=== PATIENT | male | born 1955 | race American Indian/Alaskan Native ===

== ENCOUNTER 2019-07-03 09:09 | Outpatient (CLI) | payer MEDICARE ==
[2019-07-03 11:14] LABS: Chol/HDL Ratio 3.01 %
== END 2019-07-03 09:10 | disposition home or self-care (01) ==
LOC: LAB 09:09
PROVIDERS: ATTEND Internal Medicine
DX: E11.65 Type 2 diabetes mellitus with hyperglycemia (principal); E78.5 Hyperlipidemia, unspecified
CPT/HCPCS: 36415; 80061; 83036

== ENCOUNTER 2019-11-17 10:09 | Outpatient (CLI) | payer MEDICARE ==
[2019-11-17 12:45] LABS: Chol/HDL Ratio 3.31 %
== END 2019-11-17 10:10 | disposition home or self-care (01) ==
LOC: LAB 10:09
PROVIDERS: ATTEND Internal Medicine
DX: I10 Essential (primary) hypertension (principal); E78.5 Hyperlipidemia, unspecified; E11.65 Type 2 diabetes mellitus with hyperglycemia
CPT/HCPCS: 36415; 80061; 83036

== ENCOUNTER 2021-01-18 18:09 | Observation (INO) | payer MEDICARE, OTHER ==
--- NOTE | 2021-01-18 19:42 | Emergency Department Report ---
ED General Adult HPI - General Chief complaint: Weakness Stated complaint: SYNCOPE/COVID PUI?: Yes Time Seen by Provider: 01/18/21 19:22 Source: patient, EMS ( EMS documentation not available at time of chart dictation ), RN notes reviewed, old records reviewed Mode of arrival: Stretcher Limitations: Physical Limitation - History of Present Illness Initial comments: The patient was evaluated in the emergency department for symptoms described in the history of present illness. He/she was evaluated in the context of the global COVID-19 pandemic, which necessitated consideration that the patient might be at risk for infection with the virus that causes COVID-19. Institutional protocols and algorithms that pertain to the evaluation of patients at risk for COVID-19 are in a state of rapid change based on information released by regulatory bodies including the CDC and federal and state organizations. These policies and algorithms were followed during the patient's care in the emergency department. Please note that these policies, procedures and recommendations changed on a rapid basis. During the entire history and physical examination, I had on complete personal protective equipment. Past medical history: Stroke, residual right-sided deficits, gout, hypertension, diabetes, renal insufficiency, recent admission to this hospital for symptomatic Covid, BMI 41, physical deconditioning. The patient is a 65-year-old gentleman. He was discharged from this hospital earlier on today. Please see his most recent discharge summary for the details of his past history, and hospital course, which is prolonged, and complicated. The patient reports that he occasionally walks with a walker, and sometimes with a cane. The patient reports that he was walking, became lightheaded, dizzy, and felt like he was almost going to pass out/fall out. The patient denies physical pain at this time. 911 was contacted, and it is reported that the patient was hypoxic in the field, with an O2 sat of 88%, requiring nonrebreather. The patient denies headache and neck pain. He has chronic shortness of breath. He denies chest pain. He denies abdominal pain. He is not sure if he is had loss of taste or smell. He denies hematemesis or bright red blood per rectum. He denies urinary symptoms. He has chronic weakness in his right upper and right lower extremity. He states that he still feels weak and short of breath. -: Sudden Consistency: now resolved Improves with: rest Worsens with: movement - Related Data Home Medications Medication Instructions Recorded Confirmed Last Taken Aspirin 325 mg PO QDAY 04/14/16 12/28/20 07/23/18 Losartan [Cozaar] 100 mg PO QDAY 04/14/16 12/28/20 07/26/18 Metoprolol [Lopressor TAB] 100 mg PO QDAY 04/14/16 12/28/20 07/26/18 Simvastatin (Nf) [Zocor TAB] 20 mg PO QHS 04/14/16 12/28/20 07/26/18 cloNIDine [Catapres] 0.2 mg PO QDAY 04/14/16 12/28/20 07/26/18 hydroCHLOROthiazide [HCTZ] 25 mg PO QDAY 04/14/16 12/28/20 07/26/18 Previous Rx's Medication Instructions Recorded Last Taken Type Insulin Glargine [Lantus VIAL] 10 units SUB-Q QHS 30 Days units 01/18/21 Unknown Rx Pantoprazole [Protonix TAB] 40 mg PO BIDAC #60 tablet 01/18/21 Unknown Rx allopurinoL [Zyloprim] 300 mg PO QDAY #30 01/18/21 Unknown Rx Allergies Allergy/AdvReac Type Severity Reaction Status Date / Time No Known Allergies Allergy Verified 12/28/20 17:12 ED Review of Systems ROS: Stated complaint: SYNCOPE/COVID Other details as noted in HPI Constitutional: malaise, weakness. denies: fever Eyes: denies: eye discharge ENT: denies: congestion Respiratory: shortness of breath Cardiovascular: syncope (Near syncope). denies: chest pain Gastrointestinal: denies: abdominal pain, nausea, vomiting, hematemesis, melena, hematochezia Genitourinary: denies: dysuria Musculoskeletal: myalgia Neurological: weakness ED Past Medical Hx - Past Medical History Hx Hypertension: Yes Hx CVA: Yes (right sided weakness) Hx Heart Attack/AMI: No Hx Congestive Heart Failure: No Hx Diabetes: Yes Hx Asthma: No Hx COPD: No Hx HIV: No - Social History Smoking Status: Never Smoker Substance Use Type: None - Medications Home Medications: Home Medications Medication Instructions Recorded Confirmed Last Taken Type Aspirin 325 mg PO QDAY 04/14/16 12/28/20 07/23/18 History Losartan [Cozaar] 100 mg PO QDAY 04/14/16 12/28/20 07/26/18 History Metoprolol [Lopressor TAB] 100 mg PO QDAY 04/14/16 12/28/20 07/26/18 History Simvastatin (Nf) [Zocor TAB] 20 mg PO QHS 04/14/16 12/28/20 07/26/18 History cloNIDine [Catapres] 0.2 mg PO QDAY 04/14/16 12/28/20 07/26/18 History hydroCHLOROthiazide [HCTZ] 25 mg PO QDAY 04/14/16 12/28/20 07/26/18 History Insulin Glargine [Lantus VIAL] 10 units SUB-Q QHS 30 Days units 01/18/21 Unknown Rx Pantoprazole [Protonix TAB] 40 mg PO BIDAC #60 tablet 01/18/21 Unknown Rx allopurinoL [Zyloprim] 300 mg PO QDAY #30 01/18/21 Unknown Rx ED Physical Exam - General Limitations: Physical Limitation General appearance: alert, obese - Head Head exam: Present: atraumatic, normocephalic - Eye Eye exam: Present: normal appearance, EOMI, other (Visual acuity intact to finger counting and color perception at a close distance). Absent: nystagmus - ENT ENT exam: Present: normal exam, normal orophraynx, mucous membranes moist, normal external ear exam, other (Poor dentition) - Neck Neck exam: Present: normal inspection, full ROM. Absent: tenderness, meningismus - Respiratory Respiratory exam: Present: accessory muscle use, other (Pulmonary auscultation not performed secondary to lack of disposable stethoscope). Absent: stridor - Cardiovascular Cardiovascular Exam: Present: other (Cardiac auscultation not performed secondary to lack of disposable stethoscope) - GI/Abdominal GI/Abdominal exam: Present: soft. Absent: distended, tenderness, guarding, re bound, rigid, pulsatile mass - Rectal Rectal exam: Present: deferred - Extremities Exam Extremities exam: Present: normal inspection, full ROM (Full range of motion of left arm and left leg. Chronic weakness right arm and right leg.), pedal edema (1+ edema in the bilateral lower extremities) - Back Exam Back exam: Present: normal inspection. Absent: tenderness, CVA tenderness (R), CVA tenderness (L), paraspinal tenderness, vertebral tenderness - Neurological Exam Neurological exam: Present: alert, motor sensory deficit (4 out of 5 strength right arm and right leg. Patient reports chronic dysmetria in right upper extremity), other (There is no facial droop. The tongue is midline. The extraocular movements are intact bilaterally. Speaking in complete sentences. 5 out of 5 strength left arm, left leg. [id number] intact left leg to right leg.) - Psychiatric Psychiatric exam: Present: flat affect - Skin Skin exam: Present: warm, dry, intact, normal color. Absent: rash ED Course Vital Signs 01/18/21 01/18/21 01/18/21 19:20 19:30 19:45 Temperature 97.8 F Pulse Rate 93 H 85 97 H Respiratory 26 H 25 H 32 H Rate Blood Pressure 120/75 121/70 Blood Pressure 124/71 [Left] O2 Sat by Pulse 100 100 89 Oximetry 01/18/21 01/18/21 01/18/21 20:00 20:15 20:43 Temperature Pulse Rate 98 H 76 Respiratory 28 H 26 H Rate Blood Pressure 133/81 134/80 134/80 Blood Pressure [Left] O2 Sat by Pulse 84 99 100 Oximetry 01/18/21 01/18/21 01/18/21 20:45 21:00 21:01 Temperature Pulse Rate Respiratory Rate Blood Pressure 135/84 136/78 Blood Pressure [Left] O2 Sat by Pulse 99 100 100 Oximetry 01/18/21 21:24 Temperature Pulse Rate 89 Respiratory 26 H Rate Blood Pressure Blood Pressure [Left] O2 Sat by Pulse 100 Oximetry - Reevaluation(s) Reevaluation #1: 01/18/21 20:21 Differential diagnosis, including but not limited to: Hypoxic respiratory failure, hypercarbic respiratory failure, pneumonia, urinary tract infection, intracranial hemorrhage, electrolyte derangement, pulmonary embolism, Covid long-haul Assessment and plan: 65-year-old gentleman, with multiple medical comorbidities, who presents to the ER today after a prolonged hospitalization, after being discharged earlier on today, with documentation of not requiring supplemental oxygen, saturating 88% on room air, with a complaint of weakness and near syncope. He has a GCS of 15. He is not having pain. He states he feels like he is at his baseline. Obtain appropriate laboratory studies, including arterial blood gas. Obtain x- ray the chest, noncontrast CT scan of the brain. Maintain on isolation precautions. Consider initiating steroids depending on x-ray the chest. Patient will likely require admission. Reassess after initial data points. 01/18/21 21:50 Laboratory studies reviewed and appreciated. Arterial blood gas demonstrates hypoxemic respiratory failure. High flow high humidity nasal cannula ordered. Noncontrast CT scan of the brain negative for acute findings. CT angiogram of the chest ordered, results pending. Patient is awake and protecting his airway, and moving his left side without difficulty. Hospital physician, Dr. Christina Castellanos to admit to [facility] Medical decision makin-year-old gentleman, with acute on chronic hypoxemic respiratory failure, presumably Covid long hauler, physical deconditioning, with a complaint of weakness, shortness of breath and near syncope, requires admission for supplemental oxygenation, supportive care, steroids, and inpatient management. Reevaluation #2: 01/18/21 22:21 CT scan of the chest shows right lower lobe pulmonary emboli, without evidence of right heart strain, and what appears to be pneumonia, uncertain if bacterial versus viral. Lovenox ordered. Antibiotics ordered. ED Medical Decision Making - Lab Data Result diagrams: 01/18/21 19:52 01/18/21 19:52 Vital Signs 01/18/21 19:20 Temperature 97.8 F Pulse Rate 93 H Respiratory 26 H Rate Blood Pressure 124/71 [Left] O2 Sat by Pulse 100 Oximetry Lab Results 01/18/21 Range/Units 19:52 WBC 8.3 (4.5-11.0) K/mm3 RBC 3.19 L (3.65-5.03) M/mm3 Hgb 10.0 L (11.8-15.2) gm/dl Hct 29.6 L (35.5-45.6) % MCV 93 (84-94) fl MCH 31 (28-32) pg MCHC 34 (32-34) % RDW 16.6 H (13.2-15.2) % Plt Count 205 (140-440) K/mm3 Lymph % (Auto) 12.1 L (13.4-35.0) % [place] % (Auto) 9.3 H (0.0-7.3) % Eos % (Auto) 1.9 (0.0-4.3) % Baso % (Auto) 0.5 (0.0-1.8) % Lymph # (Auto) 1.0 L (1.2-5.4) K/mm3 [place] # (Auto) 0.8 (0.0-0.8) K/mm3 Eos # (Auto) 0.2 (0.0-0.4) K/mm3 Baso # (Auto) 0.0 (0.0-0.1) K/mm3 Seg Neutrophils % 76.2 H (40.0-70.0) % Seg Neutrophils # 6.3 (1.8-7.7) K/mm3 - EKG Data -: EKG Interpreted by Fl EKG shows normal: sinus rhythm Rate: normal - EKG Data 01/18/21 20:24 EKG interpreted at 20: 21 Sinus rhythm, 80 bpm. Normal axis, normal intervals. Unremarkable EKG. Not a STEMI. Appears grossly unchanged when compared to prior EKG from March 2016. Normal P wave axis. - Radiology Data Radiology results: pending, report reviewed, image reviewed CT HEAD WITHOUT CONTRAST INDICATION / CLINICAL INFORMATION: near syncope, weak, Covid 19 patient, hx of cva. TECHNIQUE: All CT scans at this location are performed using CT dose reduction for ALARA by means of automated exposure control. COMPARISON: Head CT 01/04/2021 FINDINGS: HEMORRHAGE: No evidence of intracranial hemorrhage or extra-axial fluid collection. EXTRA-AXIAL SPACES: Cortical sulci, sylvian fissures and basilar cisterns have an unremarkable appearance. VENTRICULAR SYSTEM: The third and lateral ventricles are larger than expected for the patient's age of 65 years reflecting the presence of parenchymal atrophy. CEREBRAL PARENCHYMA: Extensive microvascular ischemic changes are seen in the white matter both cerebral hemispheres. In addition there are multiple small deep infarctions in a bilateral gangliocapsular distrib ution. No indication of recent infarction is identified. MIDLINE SHIFT OR HERNIATION: There is no mass effect. CEREBELLUM / BRAINSTEM: Brainstem and cerebellum have an unremarkable appearance. MIDLINE STRUCTURES:No abnormalities of the pituitary gland or pineal region are identified. INTRACRANIAL VESSELS: Calcified atherosclerotic plaque is seen along the course the cavernous segments of both internal carotid arteries. ORBITS: visualized portions of the orbits have an unremarkable appearance. SOFT TISSUES of HEAD: No significant abnormality. CALVARIUM: Evaluation of bone windows reveals no abnormalities. PARANASAL SINUSES / MASTOID AIR CELLS: Inflammatory mucosal disease is observed In a hypoplastic left maxillary sinus. Paranasal sinuses otherwise appear clear as are the mastoid air cells. ADDITIONAL FINDINGS: None. IMPRESSION: 1. Moderate parenchymal volume loss. 2. Advanced microvascular ischemic change. 3. Multifocal remote small deep infarctions in a bilateral gangliocapsular distribution. 4. No indication of acute ischemic injury on head CT. If clinically warranted magnetic resonance imaging with diffusion-weighted sequences would be useful for further evaluation if recent infarction is of clinical concern. Signer Name: Ayden Fowler MD Signed: 01/18/2021 8:26 PM Works tation Name: [id number] CHEST 1 VIEW INDICATION: Dyspnea COMPARISON: 01/04/2021, 04/14/2016 FINDINGS: Support devices: None Heart: Normal and unchanged Lungs/Pleura: Bilateral lung disease, unchanged from the exam 2 weeks ago. Appearance suggests somewhat of a chronic process, but the lungs are completely clear in 2016. IMPRESSION: 1. Bilateral lung disease, unchanged from 01/04/2021 Signer Name: Eric Granda MD Signed: 01/18/2021 7:50 PM Workstation Name: [id number] [facility] [address] [id number] Cat Scan Report Signed Patient: AISHA PERAZA MR#: [id number] : 1955 Acct:[id number] Age/Sex: 65 / M ADM Date: 01/18/21 Loc: ED Attending Dr: Ordering Physician: AISHA BARRAZA MD Date of Service: 01/18/21 Procedure(s): CT angio chest Accession Number(s): [id number] cc: AISHA BARRAZA MD CT angio chest INDICATION: acute hypoxia resp failure. TECHNIQUE: All CT scans at this location are performed using CT dose reduction for ALARA by means of automated exposure control. 3 plane MIP and 3-D reconstructions were produced. COMPARISON: None available. FINDINGS: Mediastinum, richie and axillae are negative. Images through the upper abdomen show multiple stones in the gallbladder. Patchy bilateral lung disease, especially prominent in the right upper lobe, consistent with pneumonia. There are abnormal filling defects in branches of the right lower lobe pulmonary artery, consistent with pulmonary emboli. IMPRESSION: 1. Segmental right lower lobe pulmonary emboli. 2. Bilateral lung disease, worse in the right upper lobe, consistent with pneumonia. 3. Findings were discussed with Dr. Barraza at 2120 hours. Signer Name: Eric Granda MD Signed: 01/18/2021 10:23 PM Workstation Name: [id number] Transcribed By: TM Dictated By: Eric Granda MD Electronically Authenticated By: Eric dee MD Signed Date/Time: 01/18/212222 DD/ 13 Critical Care Time: Yes Critical care time in (mins) excluding proc time.: 35 Critical care attestation.: If time is entered above; I have spent that time in minutes in the direct care of this critically ill patient, excluding procedure time. ED Disposition Clinical Impression: Acute respiratory failure with hypoxia, Suspected 2019 novel coronavirus infection, Body mass index (BMI) of 40.1 to 44.9 in adult, Physical deconditioning, Syncope, near, COVID-19 long hauler, Pulmonary infiltrate, Acute pulmonary embolism Disposition: DC-09 OP ADMIT IP TO THIS HOSP Is pt being admited?: Yes Does the pt Need Aspirin: Yes Condition: Fair
[2021-01-18 20:13] LABS: Basophils % (Auto) 0.5 % (0.0-1.8); Eosinophils # (Auto) 0.2 K/mm3 (0.0-0.4); Eosinophils % (Auto) 1.9 % (0.0-4.3); Hematocrit 29.6 % (35.5-45.6); Lymphocytes % (Auto) 12.1 % (13.4-35.0); Mean Corpuscular HGB Conc 34 % (32-34); Mean Corpuscular Volume 93 fl (84-94); Monocytes # (Auto) 0.8 K/mm3 (0.0-0.8); Monocytes % (Auto) 9.3 % (0.0-7.3); Platelet Count 205 K/mm3 (140-440); Red Blood Count 3.19 M/mm3 (3.65-5.03); Red Cell Distribution Width 16.6 % (13.2-15.2)
[2021-01-18 20:22] LABS: INR 1.03 (0.87-1.13)
[2021-01-18 20:23] LABS: Partial Thromboplastin Time 25.9 Sec. (24.2-36.6)
[2021-01-18 20:27] LABS: ABG Base Excess -0.6 mmol/L (-2.0-3.0); ABG HCO3 22.9 mmol/L (20.0-26.0); ABG Methemoglobin 0.5 % (0.0-1.5); ABG Oxygen Saturation 86.3 % (95.0-99.0); ABG PCO2 33.7 mm Hg; ABG PH 7.45 pH Units (7.350-7.450); ABG PO2 48.4 mm Hg (80.0-90.0)
[2021-01-18 20:32] LABS: Alanine Aminotransferase 46 units/L (7-56); BUN/Creatinine Ratio 10; Blood Urea Nitrogen 13 mg/dL (9-20); Calcium 8.3 mg/dL (8.4-10.2); Hemolysis Index 4
[2021-01-18 20:33] LABS: C-Reactive Protein 1.4 mg/dL (0.00-1.30)
[2021-01-18] MEDS ORDERED: dexAMETHasone 4 MG/ML VIAL IV ONE (20:44)
[2021-01-18] MEDS ORDERED: SODIUM CHLORIDE 0.9% 500 ML 500 ML IV ONE (20:44)
--- NOTE | 2021-01-18 20:55 | XRay Report ---
CHEST 1 VIEW INDICATION: Dyspnea COMPARISON: 01/04/2021, 04/14/2016 FINDINGS: Support devices: None Heart: Normal and unchanged Lungs/Pleura: Bilateral lung disease, unchanged from the exam 2 weeks ago. Appearance suggests somewh at of a chronic process, but the lungs are completely clear in 2016. IMPRESSION: 1. Bilateral lung disease, unchanged from 01/04/2021 Signer Name: Eric Granda MD Signed: 01/18/2021 8:50 PM Workstation Name: [id number]
--- NOTE | 2021-01-18 21:31 | Cat Scan Report ---
CT HEAD WITHOUT CONTRAST INDICATION / CLINICAL INFORMATION: near syncope, weak, Covid 19 patient, hx of cva. TECHNIQUE: All CT scans at this location are performed using CT dose reduction for ALARA by means of automated e xposure control. COMPARISON: Head CT 01/04/2021 FINDINGS: HEMORRHAGE: No evidence of intracranial hemorrhage or extra-axial fluid collection. EXTRA-AXIAL SPACES: Cortical sulci, sylvian fissures and basilar cisterns have an unremarkable appear ance. VENTRICULAR SYSTEM: The third and lateral ventricles are larger than expected for the patient's age o f 65 years reflecting the presence of parenchymal atrophy. CEREBRAL PARENCHYMA: Extensive microvascular ischemic changes are seen in the white matter both cereb ral hemispheres. In addition there are multiple small deep infarctions in a bilateral gangliocapsular distribution. No indication of recent infarction is identified. MIDLINE SHIFT OR HERNIATION: There is no mass effect. CEREBELLUM / BRAINSTEM: Brainstem and cerebellum have an unremarkable appearance. MIDLINE STRUCTURES:No abnormalities of the pituitary gland or pineal region are identified. INTRACRANIAL VESSELS: Calcified atherosclerotic plaque is seen along the course the cavernous segment s of both internal carotid arteries. ORBITS: visualized portions of the orbits have an unremarkable appearance. SOFT TISSUES of HEAD: No significant abnormality. CALVARIUM: Evaluation of bone windows reveals no abnormalities. PARANASAL SINUSES / MASTOID AIR CELLS: Inflammatory mucosal disease is observed In a hypoplastic left maxillary sinus. Paranasal sinuses otherwise appear clear as are the mastoid air cells. ADDITIONAL FINDINGS: None. IMPRESSION: 1. Moderate parenchymal volume loss. 2. Advanced microvascular ischemic change. 3. Multifocal remote small deep infarctions in a bilateral gangliocapsular distribution. 4. No indication of acute ischemic injury on head CT. If clinically warranted magnetic resonance imag ing with diffusion-weighted sequences would be useful for further evaluation if recent infarction is of clinical concern. Signer Name: Ayden Fowler MD Signed: 01/18/2021 9:26 PM Workstation Name: [id number]
[2021-01-18] MEDS ORDERED: ASPIRIN 81 MG TAB CHEW PO ONE (21:52)
[2021-01-18] MEDS ORDERED: ENOXAPARIN 100 MG/1 ML INJ SUB-Q STA (22:20)
[2021-01-18] MEDS ORDERED: cefTRIAXone/NS 1 GM/50 ML 1 GM/50 ML BAG IV ONE (22:21)
[2021-01-18] MEDS ORDERED: AZITHROMYCIN/NS 500 MG/250 ML 500 MG/250 ML BAG IV ONE (22:21)
--- NOTE | 2021-01-18 22:27 | Cat Scan Report ---
CT angio chest INDICATION: acute hypoxia resp failure. TECHNIQUE: All CT scans at this location are performed using CT dose reduction for ALARA by means of automated e xposure control. 3 plane MIP and 3-D reconstructions were produced. COMPARISON: None available. FINDINGS: Mediastinum, richie and axillae are negative. Images through the upper abdomen show multiple stones in the gallbladder. Patchy bilateral lung disease, especially prominent in the right upper lobe, consistent with pneumoni a. There are abnormal filling defects in branches of the right lower lobe pulmonary artery, consistent w ith pulmonary emboli. IMPRESSION: 1. Segmental right lower lobe pulmonary emboli. 2. Bilateral lung disease, worse in the right upper lobe, consistent with pneumonia. 3. Findings were discussed with Dr. Barraza at 2120 hours. Signer Name: Eric Granda MD Signed: 01/18/2021 10:23 PM Workstation Name: [id number]
[2021-01-18] MEDS ORDERED: DEXTROSE 50% IN WATER (25GM) 50 ML SYRINGE IV PRN (23:11)
[2021-01-18] MEDS ORDERED: ONDANSETRON 4 MG/2 ML INJ IV PRN (23:11)
[2021-01-18] MEDS ORDERED: MAGNESIUM HYDROXIDE (MOM) ORAL LIQD UDC PO PRN (23:11)
[2021-01-18] MEDS ORDERED: MORPHINE 2 MG/1 ML INJ IV PRN (23:11)
[2021-01-18] MEDS ORDERED: ACETAMINOPHEN 325 MG TAB PO PRN (23:11)
--- NOTE | 2021-01-18 23:21 | History and Physical Report ---
<CARLI BARRETT O - Last Filed: 01/19/21 07:39> History of Present Illness Date of examination: 01/18/21 Date of admission: 01/18/21 21:53 Chief complaint: Near syncope History of present illness: 65-year-old male was just discharged from the hospital earlier in the day after prolonged hospital course presented back in the emergency room today complaining of lightheadedness and dizziness. He also indicates that he has had near syncopal episodes. Was brought in by EMS and was found to be hypoxic with oxygen saturation of about 88 requiring nonrebreather. Patient denies any fever or chills, no chest pain, no headache, no nausea vomiti ng and no abdominal pain. Work-up in the emergency room reveals bilateral lung disease on the chest x-ray which is unchanged. CT angiogram of the chest reveals segmental right lower lobe pulmonary emboli. There is bilateral lung disease worse in the right upper lobe consistent with pneumonia. Past History Past Medical History: diabetes, hypertension, hyperlipidemia, stroke Past Surgical History: denies: No surgical history Social history: denies: no significant social history Family history: no significant family history Medications and Allergies Allergies Allergy/AdvReac Type Severity Reaction Status Date / Time No Known Allergies Allergy Verified 12/28/20 17:12 Home Medications Medication Instructions Recorded Confirmed Last Taken Type Aspirin 325 mg PO QDAY 04/14/16 12/28/20 07/23/18 History Losartan [Cozaar] 100 mg PO QDAY 04/14/16 12/28/20 07/26/18 History Metoprolol [Lopressor TAB] 100 mg PO QDAY 04/14/16 12/28/20 07/26/18 History Simvastatin (Nf) [Zocor TAB] 20 mg PO QHS 04/14/16 12/28/20 07/26/18 History cloNIDine [Catapres] 0.2 mg PO QDAY 04/14/16 12/28/20 07/26/18 History hydroCHLOROthiazide [HCTZ] 25 mg PO QDAY 04/14/16 12/28/20 07/26/18 History Insulin Glargine [Lantus VIAL] 10 units SUB-Q QHS 30 Days units 01/18/21 Unknown Rx Pantoprazole [Protonix TAB] 40 mg PO BIDAC #60 tablet 01/18/21 Unknown Rx allopurinoL [Zyloprim] 300 mg PO QDAY #30 01/18/21 Unknown Rx Active Meds: Active Medications Acetaminophen (Acetaminophen 325 Mg Tab) 650 mg PO Q4H PRN PRN Reason: Pain MILD(1-3)/Fever >100.5/MONTE Dextrose (Dextrose 50% In Water (25gm) 50 Ml Syringe) 50 ml IV Q30MIN PRN; Protocol PRN Reason: Hypoglycemia Azithromycin (Zithromax/Ns) 500 mg in 250 mls @ 250 mls/hr IV ONCE ONE; Protocol Stop: 01/18/21 23:20 Ceftriaxone Sodium (Rocephin/Ns 2 Gm/100 Ml) 2 gm in 100 mls @ 200 mls/hr IV Q24H [facility]; Protocol Azithromycin (Zithromax/Ns) 500 mg in 250 mls @ 250 mls/hr IV Q24H [facility]; Protocol Insulin Human Lispro (Insulin Lispro 100 Unit/Ml) 0 unit SUB-Q ACHS [facility]; Protocol Magnesium Hydroxide (Magnesium Hydroxide (Mom) Oral Liqd Udc) 30 ml PO Q4H PRN PRN Reason: Constipation Morphine Sulfate (Morphine 2 Mg/1 Ml Inj) 2 mg IV Q4H PRN PRN Reason: Pain, Moderate (4-6) Ondansetron HCl (Ondansetron 4 Mg/2 Ml Inj) 4 mg IV Q8H PRN PRN Reason: Nausea And Vomiting Sodium Chloride (Sodium Chloride 0.9% 10 Ml Flush Syringe) 10 ml IV BID CLARSISE Sodium Chloride (Sodium Chloride 0.9% 10 Ml Flush Syringe) 10 ml IV PRN PRN PRN Reason: LINE FLUSH Review of Systems Constitutional: weakness, no fever, no chills Ears, nose, mouth and throat: no nasal congestion, no sore throat Cardiovascular: no chest pain, no palpitations Respiratory: shortness of breath, no cough Gastrointestinal: no nausea, no vomiting, no diarrhea Genitourinary Male: no dysuria, no hematuria, no flank pain, no nocturia Musculoskeletal: no neck pain, no low back pain Integumentary: no rash, no pruritis Neurological: no headaches, no confusion Psychiatric: no anxiety, no depression Endocrine: no polydipsia, no polyuria, no nocturia Exam - Constitutional Vitals: Temp Pulse Resp BP Pulse Ox 97.8 F 71 16 114/58 99 01/18/21 19:20 01/18/21 22:45 01/18/21 22:45 01/18/21 22:45 01/18/21 22:45 General appearance: Present: no acute distress, well-nourished - EENT Eyes: Present: PERRL, EOM intact. Absent: scleral icterus ENT: hearing intact, clear oral mucosa, dentition normal - Neck Neck: Present: supple, normal ROM - Respiratory Respiratory effort: normal Respiratory: bilateral: diminished - Cardiovascular Rhythm: regular Heart Sounds: Present: S1 & S2. Absent: gallop, systolic murmur, diastolic murmur, rub, click - Extremities Extremities: no ischemia, pulses intact, No edema, normal temperature, normal color, Full ROM Peripheral Pulses: within normal limits - Abdominal General gastrointestinal: Present: soft, non-tender, non-distended, normal bowel sounds. Absent: mass - Integumentary Integumentary: Present: clear, warm, dry. Absent: rash - Psychiatric Psychiatric: appropriate mood/affect, intact judgment & insight, memory intact, cooperative - Neurologic Neurologic: CNII-XII intact, no focal deficits, moves all extremities HEART Score - HEART Score Troponin: Troponin T 0.028 ng/mL (0.00-0.029) 01/18/21 19:52 Results - Labs CBC & Chem 7: 01/18/21 19:52 01/18/21 19:52 Labs: Abnormal lab results 01/18/21 01/18/21 01/18/21 Range/Units 19:52 19:52 19:52 RBC 3.19 L (3.65-5.03) M/mm3 Hgb 10.0 L (11.8-15.2) gm/dl Hct 29.6 L (35.5-45.6) % RDW 16.6 H (13.2-15.2) % Lymph % (Auto) 12.1 L (13.4-35.0) % [place] % (Auto) 9.3 H (0.0-7.3) % Lymph # (Auto) 1.0 L (1.2-5.4) K/mm3 Seg Neutrophils % 76.2 H (40.0-70.0) % D-Dimer 6577.22 H (0-234) ng/mlDDU ABG pO2 (80.0-90.0) mm Hg ABG O2 Saturation (95.0-99.0) % ABG Hemoglobin (14.0-18.0) gm/dl Oxyhemoglobin (95.0-99.0) % Sodium 133 L (137-145) mmol/L Glucose 181 H (75-100) mg/dL Calcium 8.3 L (8.4-10.2) mg/dL Ferritin (30.0-300.0) ng/mL Lactate Dehydrogenase (91-180) units/L C-Reactive Protein (0.00-1.30) mg/dL Total Protein 6.1 L (6.3-8.2) g/dL Albumin 3.0 L (3.9-5) g/dL 01/18/21 01/18/21 01/18/21 Range/Units 19:52 19:52 20:13 RBC (3.65-5.03) M/mm3 Hgb (11.8-15.2) gm/dl Hct (35.5-45.6) % RDW (13.2-15.2) % Lymph % (Auto) (13.4-35.0) % [place] % (Auto) (0.0-7.3) % Lymph # (Auto) (1.2-5.4) K/mm3 Seg Neutrophils % (40.0-70.0) % D-Dimer (0-234) ng/mlDDU ABG pO2 48.4 L (80.0-90.0) mm Hg ABG O2 Saturation 86.3 L (95.0-99.0) % ABG Hemoglobin 11.6 L (14.0-18.0) gm/dl Oxyhemoglobin 84.6 L (95.0-99.0) % Sodium (137-145) mmol/L Glucose 182 H (75-100) mg/dL Calcium (8.4-10.2) mg/dL Ferritin 514.2 H (30.0-300.0) ng/mL Lactate Dehydrogenase 255 H (91-180) units/L C-Reactive Protein 1.40 H (0.00-1.30) mg/dL Total Protein (6.3-8.2) g/dL Albumin (3.9-5) g/dL Assessment and Plan - Patient Problems (1) Acute pulmonary embolism Current Visit: Yes Status: Acute Plan to address problem: Patient started on anticoagulation with Lovenox. (2) Suspected 2019 novel coronavirus infection Current Visit: Yes Status: Acute Plan to address problem: We will continue on isolation precautions. We will request infectious disease follow-up. (3) Acute respiratory failure with hypoxia Current Visit: Yes Status: Acute Plan to address problem: Possibly secondary to the underlying pneumonia and pulmonary embolism. We will keep oxygen saturation greater equal to 94%. Consult will be placed to microwave technician for evaluation. (4) Hypertension Current Visit: No Status: Chronic Qualifiers: Hypertension type: essential hypertension Qualified Code(s): I10 - Essential (primary) hypertension Plan to address problem: We will resume routine home medications and monitor vital signs closely. (5) T2DM (type 2 diabetes mellitus) Current Visit: No Status: Chronic Qualifiers: Diabetes mellitus terminal operator insulin use: unspecified nursing home insulin use status Plan to address problem: We will monitor Accu-Cheks. Patient placed on sliding scale insulin. (6) DVT prophylaxis Current Visit: No Status: Acute Plan to address problem: Patient currently on anticoagulation. (7) Full code status Current Visit: Yes Status: Acute Plan to address problem: Full code <CELINE SILVA - Last Filed: 01/19/21 15:24> History of Present Illness Date of admission: 01/18/21 21:53 Medications and Allergies Active Meds: Active Medications Acetaminophen (Acetaminophen 325 Mg Tab) 650 mg PO Q4H PRN PRN Reason: Pain MILD(1-3)/Fever >100.5/MONTE Apixaban (Apixaban 5 Mg Tab) 10 mg PO Q12HR [facility]ISSE; Protocol Stop: 01/25/21 22:01 Last Admin: 01/19/21 10:04 Dose: 10 mg Documented by: Apixaban (Apixaban 5 Mg Tab) 5 mg PO Q12HR CL[facility]ISSE; Protocol Dextrose (Dextrose 50% In Water (25gm) 50 Ml Syringe) 0 ml IV Q30MIN PRN; Protocol PRN Reason: Hypoglycemia Levofloxacin/Dextrose (Levaquin 750mg/150ml) 750 mg in 150 mls @ 100 mls/hr IV Q24H [facility]ISSE; Protocol Last Admin: 01/19/21 10:05 Dose: 100 mls/hr Documented by: Insulin Human Lispro (Insulin Lispro 100 Unit/Ml) 0 unit SUB-Q ACHS [facility]; Protocol Last Admin: 01/19/21 07:30 Dose: 2 unit Documented by: Magnesium Hydroxide (Magnesium Hydroxide (Mom) Oral Liqd Udc) 30 ml PO Q4H PRN PRN Reason: Constipation Morphine Sulfate (Morphine 2 Mg/1 Ml Inj) 2 mg IV Q4H PRN PRN Reason: Pain, Moderate (4-6) Ondansetron HCl (Ondansetron 4 Mg/2 Ml Inj) 4 mg IV Q8H PRN PRN Reason: Nausea And Vomiting Sodium Chloride (Sodium Chloride 0.9% 10 Ml Flush Syringe) 10 ml IV BID [facility] Last Admin: 01/19/21 10:05 Dose: 10 ml Documented by: Sodium Chloride (Sodium Chloride 0.9% 10 Ml Flush Syringe) 10 ml IV PRN PRN PRN Reason: LINE FLUSH Exam - Constitutional Vitals: Temp Pulse Resp BP Pulse Ox 98.0 F 98 H 20 119/84 96 01/19/21 05:08 01/19/21 05:08 01/19/21 05:08 01/19/21 05:08 01/19/21 13:09 HEART Score - HEART Score Troponin: Troponin T 0.029 ng/mL (0.00-0.029) 01/19/21 09:49 Results - Labs CBC & Chem 7: 01/19/21 09:49 01/19/21 09:49 Labs: Abnormal lab results 01/18/21 01/18/21 01/18/21 Range/Units 19:52 19:52 19:52 RBC 3.19 L (3.65-5.03) M/mm3 Hgb 10.0 L (11.8-15.2) gm/dl Hct 29.6 L (35.5-45.6) % RDW 16.6 H (13.2-15.2) % Lymph % (Auto) 12.1 L (13.4-35.0) % [place] % (Auto) 9.3 H (0.0-7.3) % Lymph # (Auto) 1.0 L (1.2-5.4) K/mm3 Seg Neutrophils % 76.2 H (40.0-70.0) % D-Dimer 6577.22 H (0-234) ng/mlDDU ABG pO2 (80.0-90.0) mm Hg ABG O2 Saturation (95.0-99.0) % ABG Hemoglobin (14.0-18.0) gm/dl Oxyhemoglobin (95.0-99.0) % Sodium 133 L (137-145) mmol/L Carbon Dioxide (22-30) mmol/L Glucose 181 H (75-100) mg/dL POC Glucose (70-105) mg/dL Calcium 8.3 L (8.4-10.2) mg/dL Ferritin (30.0-300.0) ng/mL Lactate Dehydrogenase (91-180) units/L C-Reactive Protein (0.00-1.30) mg/dL Total Protein 6.1 L (6.3-8.2) g/dL Albumin 3.0 L (3.9-5) g/dL 01/18/21 01/18/21 01/18/21 Range/Units 19:52 19:52 20:13 RBC (3.65-5.03) M/mm3 Hgb (11.8-15.2) gm/dl Hct (35.5-45.6) % RDW (13.2-15.2) % Lymph % (Auto) (13.4-35.0) % [place] % (Auto) (0.0-7.3) % Lymph # (Auto) (1.2-5.4) K/mm3 Seg Neutrophils % (40.0-70.0) % D-Dimer (0-234) ng/mlDDU ABG pO2 48.4 L (80.0-90.0) mm Hg ABG O2 Saturation 86.3 L (95.0-99.0) % ABG Hemoglobin 11.6 L (14.0-18.0) gm/dl Oxyhemoglobin 84.6 L (95.0-99.0) % Sodium (137-145) mmol/L Carbon Dioxide (22-30) mmol/L Glucose 182 H (75-100) mg/dL POC Glucose (70-105) mg/dL Calcium (8.4-10.2) mg/dL Ferritin 514.2 H (30.0-300.0) ng/mL Lactate Dehydrogenase 255 H (91-180) units/L C-Reactive Protein 1.40 H (0.00-1.30) mg/dL Total Protein (6.3-8.2) g/dL Albumin (3.9-5) g/dL 01/19/21 01/19/21 01/19/21 Range/Units 07:48 09:49 09:49 RBC 3.00 L (3.65-5.03) M/mm3 Hgb 9.1 L (11.8-15.2) gm/dl Hct 27.7 L (35.5-45.6) % RDW 16.4 H (13.2-15.2) % Lymph % (Auto) (13.4-35.0) % [place] % (Auto) (0.0-7.3) % Lymph # (Auto) 1.1 L (1.2-5.4) K/mm3 Seg Neutrophils % 73.7 H (40.0-70.0) % D-Dimer (0-234) ng/mlDDU ABG pO2 (80.0-90.0) mm Hg ABG O2 Saturation (95.0-99.0) % ABG Hemoglobin (14.0-18.0) gm/dl Oxyhemoglobin (95.0-99.0) % Sodium (137-145) mmol/L Carbon Dioxide 18 L (22-30) mmol/L Glucose 265 H (75-100) mg/dL POC Glucose 197 H (70-105) mg/dL Calcium (8.4-10.2) mg/dL Ferritin (30.0-300.0) ng/mL Lactate Dehydrogenase (91-180) units/L C-Reactive Protein (0.00-1.30) mg/dL Total Protein (6.3-8.2) g/dL Albumin (3.9-5) g/dL
[2021-01-18 23:31] LABS: Bilirubin,Urine NEG (Negative); Blood,Urine NEG (Negative); Color,Urine Yellow (Yellow); Protein,Urine <15 mg/dL mg/dL (Negative); Urobilinogen,Urine < 2.0 mg/dL (<2.0)
[2021-01-19] MEDS: INSULIN LISPRO 100 UNIT/ML SUB-Q SCH ×4 (07:30→23:23)
--- NOTE | 2021-01-19 09:30 | Progress Note ---
Assessment and Plan -- Acute pulmonary embolism Patient started on anticoagulation with Lovenox, changed to Eliquis today. -- 2019 novel coronavirus infection last positive test on 01/13/21 We will continue on isolation precautions. We will request infectious disease follow-up. -- Acute respiratory failure with hypoxia Possibly secondary to the underlying pneumonia and pulmonary embolism. We will keep oxygen saturation greater equal to 94%. Consult will be placed to service advocate contact for evaluation. -- Hypertension We will resume routine home medications and monitor vital signs closely. -- T2DM (type 2 diabetes mellitus) We will monitor Accu-Cheks. Patient placed on sliding scale insulin. --Gout Continue allopurinol --History of CVA with residual deficit Continue home medications --Morbid obesity Diet and exercise -- DVT prophylaxis Patient currently on anticoagulation. -- Full code status Brief History: 65-year-old male was just discharged from the hospital earlier in the day after a prolonged hospital course presented back in the emergency room same day complaining of lightheadedness and dizziness. Was brought in by EMS and was found to be hypoxic with oxygen saturation of about 88 requiring nonrebreather. Work-up in the emergency room reveals bilateral lung disease on the chest x-ray which is unchanged. CT angiogram of the chest reveals segmental right lower lobe pulmonary emboli. There is bilateral lung disease worse in the right upper lobe consistent with pneumonia. patient placed on abx, therapeutic dose of AC and admitted for further evaluation and Mx. 01/18: cont supplemental O2, change lovenox to eliquis. Discussed with and she wants rehab placement for the patient. order PT eval. Subjective Date of service: 01/19/21 Interval history: Patient seen and examined. Medical records and medication list reviewed. No acute event overnight noted by the RN. Patient denies any chest pain, patient resting on 2 to 4 L nasal cannula O2. Patient is tolerating diet. Discussed plan of care at bedside with patient. Objective - Exam Narrative Exam: Limited physical exam due to COVID-19 pandemic to minimize transmission of the disease and to preserve PPE. Vital reviewed and stable. GENERAL: well-developed obese -[place] male lying on bed appeared to be in no discomfort. HEENT: Normocephalic. Atraumatic. NECK: Supple. CHEST/LUNGS: breathing nonlabored. On nasal cannula HEART/CARDIOVASCULAR: Heart rate stable on telemetry ABDOMEN: Visibly not distended SKIN: There is no rash NEURO: No focal motor deficit. Follows command. MUSCULOSKELETAL: No joint effusion EXTRIMITY: No swelling, no cyanosis or clubbing. PSYCH: Cooperative. - Constitutional Vitals: Vital Signs - 12hr 01/18/21 01/18/21 01/18/21 21:24 21:30 21:52 Temperature Pulse Rate 89 84 93 H Pulse Rate [ Right Brachial] Respiratory 26 H 25 H 27 H Rate Blood Pressure 131/82 134/82 O2 Sat by Pulse 100 100 95 Oximetry 01/18/21 01/18/21 01/18/21 22:00 22:15 22:30 Temperature Pulse Rate 88 81 69 Pulse Rate [ Right Brachial] Respiratory 30 H 24 17 Rate Blood Pressure 138/77 148/77 117/50 O2 Sat by Pulse 96 98 98 Oximetry 01/18/21 01/18/21 01/18/21 22:45 23:00 23:15 Temperature Pulse Rate 71 83 84 Pulse Rate [ Right Brachial] Respiratory 16 19 25 H Rate Blood Pressure 114/58 114/60 145/80 O2 Sat by Pulse 99 98 96 Oximetry 01/18/21 01/18/21 01/18/21 23:20 23:30 23:45 Temperature Pulse Rate 79 68 89 Pulse Rate [ Right Brachial] Respiratory 22 16 22 Rate Blood Pressure 145/80 147/73 151/82 O2 Sat by Pulse 97 99 96 Oximetry 01/19/21 01/19/21 01/19/21 00:00 00:15 00:30 Temperature Pulse Rate 78 89 77 Pulse Rate [ Right Brachial] Respiratory 18 24 19 Rate Blood Pressure 140/78 134/70 139/83 O2 Sat by Pulse 98 97 99 Oximetry 01/19/21 01/19/21 01/19/21 00:45 01:00 01:09 Temperature Pulse Rate 73 85 Pulse Rate [ 86 Right Brachial] Respiratory 20 15 20 Rate Blood Pressure 157/76 135/88 O2 Sat by Pulse 99 99 99 Oximetry 01/19/21 01/19/21 01/19/21 01:15 03:00 05:08 Temperature 97.8 F 98.0 F Pulse Rate 66 86 98 H Pulse Rate [ Right Brachial] Respiratory 13 20 20 Rate Blood Pressure 107/53 144/77 119/84 O2 Sat by Pulse 99 99 98 Oximetry - Labs CBC & Chem 7: 01/19/21 09:49 01/19/21 09:49 Labs: Abnormal lab results 01/18/21 01/18/21 01/18/21 Range/Units 19:52 19:52 19:52 RBC 3.19 L (3.65-5.03) M/mm3 Hgb 10.0 L (11.8-15.2) gm/dl Hct 29.6 L (35.5-45.6) % RDW 16.6 H (13.2-15.2) % Lymph % (Auto) 12.1 L (13.4-35.0) % [place] % (Auto) 9.3 H (0.0-7.3) % Lymph # (Auto) 1.0 L (1.2-5.4) K/mm3 Seg Neutrophils % 76.2 H (40.0-70.0) % D-Dimer 6577.22 H (0-234) ng/mlDDU ABG pO2 (80.0-90.0) mm Hg ABG O2 Saturation (95.0-99.0) % ABG Hemoglobin (14.0-18.0) gm/dl Oxyhemoglobin (95.0-99.0) % Sodium 133 L (137-145) mmol/L Glucose 181 H (75-100) mg/dL Calcium 8.3 L (8.4-10.2) mg/dL Ferritin (30.0-300.0) ng/mL Lactate Dehydrogenase (91-180) units/L C-Reactive Protein (0.00-1.30) mg/dL Total Protein 6.1 L (6.3-8.2) g/dL Albumin 3.0 L (3.9-5) g/dL 01/18/21 01/18/21 01/18/21 Range/Units 19:52 19:52 20:13 RBC (3.65-5.03) M/mm3 Hgb (11.8-15.2) gm/dl Hct (35.5-45.6) % RDW (13.2-15.2) % Lymph % (Auto) (13.4-35.0) % [place] % (Auto) (0.0-7.3) % Lymph # (Auto) (1.2-5.4) K/mm3 Seg Neutrophils % (40.0-70.0) % D-Dimer (0-234) ng/mlDDU ABG pO2 48.4 L (80.0-90.0) mm Hg ABG O2 Saturation 86.3 L (95.0-99.0) % ABG Hemoglobin 11.6 L (14.0-18.0) gm/dl Oxyhemoglobin 84.6 L (95.0-99.0) % Sodium (137-145) mmol/L Glucose 182 H (75-100) mg/dL Calcium (8.4-10.2) mg/dL Ferritin 514.2 H (30.0-300.0) ng/mL Lactate Dehydrogenase 255 H (91-180) units/L C-Reactive Protein 1.40 H (0.00-1.30) mg/dL Total Protein (6.3-8.2) g/dL Albumin (3.9-5) g/dL HEART Score - HEART Score Troponin: Troponin T 0.028 ng/mL (0.00-0.029) 01/18/21 19:52
[2021-01-19] MEDS ORDERED: cefTRIAXone/NS 2 GM/100 ML 2 GM/100 ML BAG IV SCH (10:00)
[2021-01-19] MEDS ORDERED: ENOXAPARIN 120 MG/0.8 ML INJ SUB-Q SCH (10:00)
[2021-01-19] MEDS ORDERED: AZITHROMYCIN/NS 500 MG/250 ML 500 MG/250 ML BAG IV SCH (10:00)
[2021-01-19] MEDS ORDERED: ENOXAPARIN 100 MG/1 ML INJ SUB-Q SCH (10:00)
[2021-01-19] MEDS: APIXABAN 5 MG TAB PO SCH ×2 (10:04→23:22)
[2021-01-19 10:35] LABS: Basophils % (Auto) 0.4 % (0.0-1.8); Eosinophils % (Auto) 0.2 % (0.0-4.3); Hematocrit 27.7 % (35.5-45.6); Hemoglobin 9.1 gm/dl (11.8-15.2); Lymphocytes # (Auto) 1.1 K/mm3 (1.2-5.4); Lymphocytes % (Auto) 19.2 % (13.4-35.0); Mean Corpuscular HGB Conc 33 % (32-34); Mean Corpuscular Volume 92 fl (84-94); Monocytes # (Auto) 0.4 K/mm3 (0.0-0.8); Monocytes % (Auto) 6.5 % (0.0-7.3); Platelet Count 210 K/mm3 (140-440); Red Cell Distribution Width 16.4 % (13.2-15.2)
[2021-01-19 10:48] LABS: INR 1.06 (0.87-1.13)
[2021-01-19 10:49] LABS: Partial Thromboplastin Time 33.2 Sec. (24.2-36.6)
[2021-01-19 11:51] LABS: BUN/Creatinine Ratio 12; Blood Urea Nitrogen 14 mg/dL (9-20); Calcium 8.4 mg/dL (8.4-10.2); Hemolysis Index 10
--- NOTE | 2021-01-19 15:23 | Consultation ---
History of Present Illness Consult date: 01/19/21 Reason for consult: dyspnea History of present illness: History of present illness: 65-year-old male was just discharged from the hospital earlier in the day after prolonged hospital course presented back in the emergency room today complaining of lightheadedness and dizziness. He also indicates that he has had near syncopal episodes. Was brought in by EMS and was found to be hypoxic with oxygen saturation of about 88 requiring nonrebreather. Patient denies any fever or chills, no chest pain, no headache, no nausea vomiting and no abdominal pain. Patient does complain of abdominal bloating. Work-up in the emergency room reveals bilateral lung disease on the chest x-ray which is unchanged. CT angiogram of the chest reveals segmental right lower lobe pulmonary emboli. There is bilateral lung disease worse in the right upper lobe consistent with pneumonia. Past History Past Medical History: diabetes, hypertension, hyperlipidemia, stroke Past Surgical History: denies: No surgical history Social history: denies: no significant social history Family history: no significant family history Medications and Allergies Allergies Allergy/AdvReac Type Severity Reaction Status Date / Time No Known Allergies Allergy Verified 12/28/20 17:12 Home Medications Medication Instructions Recorded Confirmed Last Taken Type Aspirin 325 mg PO QDAY 04/14/16 12/28/20 07/23/18 History Losartan [Cozaar] 100 mg PO QDAY 04/14/16 12/28/20 07/26/18 History Metoprolol [Lopressor TAB] 100 mg PO QDAY 04/14/16 12/28/20 07/26/18 History Simvastatin (Nf) [Zocor TAB] 20 mg PO QHS 04/14/16 12/28/20 07/26/18 History cloNIDine [Catapres] 0.2 mg PO QDAY 04/14/16 12/28/20 07/26/18 History hydroCHLOROthiazide [HCTZ] 25 mg PO QDAY 04/14/16 12/28/20 07/26/18 History Insulin Glargine [Lantus VIAL] 10 units SUB-Q QHS 30 Days units 01/18/21 Unknown Rx Pantoprazole [Protonix TAB] 40 mg PO BIDAC #60 tablet 01/18/21 Unknown Rx allopurinoL [Zyloprim] 300 mg PO QDAY #30 01/18/21 Unknown Rx Active Meds: Active Medications Acetaminophen (Acetaminophen 325 Mg Tab) 650 mg PO Q4H PRN PRN Reason: Pain MILD(1-3)/Fever >100.5/MONTE Apixaban (Apixaban 5 Mg Tab) 10 mg PO Q12HR COUNTS INCLUDE 234 BEDS AT THE [facility]; Protocol Stop: 01/25/21 22:01 Last Admin: 01/19/21 10:04 Dose: 10 mg Documented by: Apixaban (Apixaban 5 Mg Tab) 5 mg PO Q12HR COUNTS INCLUDE 234 BEDS AT THE [facility]; Protocol Dextrose (Dextrose 50% In Water (25gm) 50 Ml Syringe) 0 ml IV Q30MIN PRN; Protocol PRN Reason: Hypoglycemia Levofloxacin/Dextrose (Levaquin 750mg/150ml) 750 mg in 150 mls @ 100 mls/hr IV Q24H COUNTS INCLUDE 234 BEDS AT THE [facility]; Protocol Last Admin: 01/19/21 10:05 Dose: 100 mls/hr Documented by: Insulin Human Lispro (Insulin Lispro 100 Unit/Ml) 0 unit SUB-Q ACHS COUNTS INCLUDE 234 BEDS AT THE [facility]; Protocol Last Admin: 01/19/21 07:30 Dose: 2 unit Documented by: Magnesium Hydroxide (Magnesium Hydroxide (Mom) Oral Liqd Udc) 30 ml PO Q4H PRN PRN Reason: Constipation Morphine Sulfate (Morphine 2 Mg/1 Ml Inj) 2 mg IV Q4H PRN PRN Reason: Pain, Moderate (4-6) Ondansetron HCl (Ondansetron 4 Mg/2 Ml Inj) 4 mg IV Q8H PRN PRN Reason: Nausea And Vomiting Sodium Chloride (Sodium Chloride 0.9% 10 Ml Flush Syringe) 10 ml IV BID COUNTS INCLUDE 234 BEDS AT THE [facility] Last Admin: 01/19/21 10:05 Dose: 10 ml Documented by: Sodium Chloride (Sodium Chloride 0.9% 10 Ml Flush Syringe) 10 ml IV PRN PRN PRN Reason: LINE FLUSH Review of Systems All systems: negative Constitutional: weight loss, fatigue, weakness Cardiovascular: shortness of breath Respiratory: cough Gastrointestinal: other (Bloating) Physical Examination Vital signs: Vital Signs Temp Pulse Resp BP Pulse Ox 97.8 F 93 H 26 H 124/71 100 01/18/21 19:20 01/18/21 19:20 01/18/21 19:20 01/18/21 19:20 01/18/21 19:20 General appearance: no acute distress, alert, appears uncomfortable, other (Severely obese) Eyes: non-icteric ENT: oropharynx moist, other (Crowded oropharynx) Neck: supple, no JVD Effort: normal Ascultation: Bilateral: clear Cardiovascular: regular rate and rhythm Gastrointestinal: normoactive bowel sounds, soft, non-tender (Distended), other (Distended) Integumentary: normal Extremities: no cyanosis, other (Mild edema present) Musculoskeletal: other (Weakness and some degree of atrophy of the right upper extremity) normal mental status mood appropriate Results - Laboratory Findings CBC and BMP: 01/19/21 09:49 01/19/21 09:49 ABG ABG pH 7.450 pH Units (7.350-7.450) 01/18/21 20:13 ABG pCO2 33.7 mm Hg 01/18/21 20:13 ABG pO2 48.4 mm Hg (80.0-90.0) L 01/18/21 20:13 ABG O2 Saturation 86.3 % (95.0-99.0) L 01/18/21 20:13 PT/INR, D-dimer PT 13.7 Sec. (12.2-14.9) 01/19/21 09:49 INR 1.06 (0.87-1.13) 01/19/21 09:49 D-Dimer 6577.22 ng/mlDDU (0-234) H 01/18/21 19:52 Abnormal lab findings: Abnormal Labs 01/18/21 01/18/21 01/18/21 19:52 19:52 19:52 RBC 3.19 L Hgb 10.0 L Hct 29.6 L RDW 16.6 H Lymph % (Auto) 12.1 L [place] % (Auto) 9.3 H Lymph # (Auto) 1.0 L Seg Neutrophils % 76.2 H D-Dimer 6577.22 H ABG pO2 ABG O2 Saturation ABG Hemoglobin Oxyhemoglobin Sodium 133 L Carbon Dioxide Glucose 181 H POC Glucose Calcium 8.3 L Ferritin Lactate Dehydrogenase C-Reactive Protein Total Protein 6.1 L Albumin 3.0 L 01/18/21 01/18/21 01/18/21 19:52 19:52 20:13 RBC Hgb Hct RDW Lymph % (Auto) [place] % (Auto) Lymph # (Auto) Seg Neutrophils % D-Dimer ABG pO2 48.4 L ABG O2 Saturation 86.3 L ABG Hemoglobin 11.6 L Oxyhemoglobin 84.6 L Sodium Carbon Dioxide Glucose 182 H POC Glucose Calcium Ferritin 514.2 H Lactate Dehydrogenase 255 H C-Reactive Protein 1.40 H Total Protein Albumin 01/19/21 01/19/21 01/19/21 07:48 09:49 09:49 RBC 3.00 L Hgb 9.1 L Hct 27.7 L RDW 16.4 H Lymph % (Auto) [place] % (Auto) Lymph # (Auto) 1.1 L Seg Neutrophils % 73.7 H D-Dimer ABG pO2 ABG O2 Saturation ABG Hemoglobin Oxyhemoglobin Sodium Carbon Dioxide 18 L Glucose 265 H POC Glucose 197 H Calcium Ferritin Lactate Dehydrogenase C-Reactive Protein Total Protein Albumin - Diagnostic Findings Chest x-ray: image reviewed (Right upper lobe infiltrate unchanged from the previous study) Assessment and Plan Impression: Acute hypoxic respiratory failure S/p COVID-19 infection COVID-19 pneumonia abdominal bloating History of CVA with right hemiparesis Rule out obstructive sleep apnea Hypertension Hyperlipidemia Recommendation: Continue with antibiotic although doubt a acute new infection x-rays unchanged from the past. Continue with supplemental oxygen and may require oxygen at home We will closely monitor him here
[2021-01-20] MEDS: INSULIN LISPRO 100 UNIT/ML SUB-Q SCH ×2 (09:12→12:57)
[2021-01-20] MEDS: APIXABAN 5 MG TAB PO SCH (09:13)
--- NOTE | 2021-01-20 11:11 | Progress Note ---
Assessment and Plan Impression: Acute hypoxic respiratory failure S/p COVID-19 infection COVID-19 pneumonia abdominal bloating History of CVA with right hemiparesis Rule out obstructive sleep apnea Hypertension Hyperlipidemia Recommendation: Continue with antibiotic although doubt a acute new infection, x-rays unchanged from the past. Continue with supplemental oxygen and may require oxygen at home We will closely monitor him here Subjective Date of service: 01/20/21 Interval history: No significant change comfortable off oxygen no new complaints Objective Vital Signs - 12hr 01/20/21 01/20/21 01/20/21 01:00 04:31 05:01 Temperature 98.4 F Pulse Rate 102 H Pulse Rate [ 94 H Right Brachial] Respiratory 18 20 Rate Blood Pressure 141/75 O2 Sat by Pulse 92 97 98 Oximetry Constitutional: no acute distress, alert, appears uncomfortable, other (Severely obese) Eyes: non-icteric ENT: oropharynx moist, other (Crowded oropharynx) Neck: supple, no JVD Effort: normal Ascultation: Bilateral: clear Cardiovascular: regular rate and rhythm Gastrointestinal: normoactive bowel sounds, soft, non-tender (Distended), other (Distended) Integumentary: normal Extremities: no cyanosis, other (Mild edema present) Neurologic: normal mental status Psychiatric: mood appropriate CBC and BMP: 01/19/21 09:49 01/19/21 09:49 ABG, PT/INR, D-dimer: ABG ABG pH 7.450 pH Units (7.350-7.450) 01/18/21 20:13 ABG pCO2 33.7 mm Hg 01/18/21 20:13 ABG pO2 48.4 mm Hg (80.0-90.0) L 01/18/21 20:13 ABG O2 Saturation 86.3 % (95.0-99.0) L 01/18/21 20:13 PT/INR, D-dimer PT 13.7 Sec. (12.2-14.9) 01/19/21 09:49 INR 1.06 (0.87-1.13) 01/19/21 09:49 D-Dimer 6577.22 ng/mlDDU (0-234) H 01/18/21 19:52 Abnormal lab findings: Abnormal Labs 01/18/21 01/18/21 01/18/21 19:52 19:52 19:52 RBC 3.19 L Hgb 10.0 L Hct 29.6 L RDW 16.6 H Lymph % (Auto) 12.1 L [place] % (Auto) 9.3 H Lymph # (Auto) 1.0 L Seg Neutrophils % 76.2 H D-Dimer 6577.22 H ABG pO2 ABG O2 Saturation ABG Hemoglobin Oxyhemoglobin Sodium 133 L Carbon Dioxide Glucose 181 H POC Glucose Calcium 8.3 L Ferritin Lactate Dehydrogenase C-Reactive Protein Total Protein 6.1 L Albumin 3.0 L 01/18/21 01/18/21 01/18/21 19:52 19:52 20:13 RBC Hgb Hct RDW Lymph % (Auto) [place] % (Auto) Lymph # (Auto) Seg Neutrophils % D-Dimer ABG pO2 48.4 L ABG O2 Saturation 86.3 L ABG Hemoglobin 11.6 L Oxyhemoglobin 84.6 L Sodium Carbon Dioxide Glucose 182 H POC Glucose Calcium Ferritin 514.2 H Lactate Dehydrogenase 255 H C-Reactive Protein 1.40 H Total Protein Albumin 01/19/21 01/19/21 01/19/21 07:48 09:49 09:49 RBC 3.00 L Hgb 9.1 L Hct 27.7 L RDW 16.4 H Lymph % (Auto) [place] % (Auto) Lymph # (Auto) 1.1 L Seg Neutrophils % 73.7 H D-Dimer ABG pO2 ABG O2 Saturation ABG Hemoglobin Oxyhemoglobin Sodium Carbon Dioxide 18 L Glucose 265 H POC Glucose 197 H Calcium Ferritin Lactate Dehydrogenase C-Reactive Protein Total Protein Albumin 01/19/21 01/19/21 01/19/21 11:14 16:02 23:14 RBC Hgb Hct RDW Lymph % (Auto) [place] % (Auto) Lymph # (Auto) Seg Neutrophils % D-Dimer ABG pO2 ABG O2 Saturation ABG Hemoglobin Oxyhemoglobin Sodium Carbon Dioxide Glucose POC Glucose 176 H 134 H 187 H Calcium Ferritin Lactate Dehydrogenase C-Reactive Protein Total Protein Albumin 01/20/21 08:52 RBC Hgb Hct RDW Lymph % (Auto) [place] % (Auto) Lymph # (Auto) Seg Neutrophils % D-Dimer ABG pO2 ABG O2 Saturation ABG Hemoglobin Oxyhemoglobin Sodium Carbon Dioxide Glucose POC Glucose 194 H Calcium Ferritin Lactate Dehydrogenase C-Reactive Protein Total Protein Albumin
--- NOTE | 2021-01-20 13:13 | Discharge Summary ---
Providers - Providers Date of Admission: 01/18/21 21:53 Date of discharge: 01/20/21 Attending physician: GABRIELLA AGUILLON 01/18/21 23:12 Consult to Dietitian/Nutrition [CONS] Routine Physician Instructions: Reason For Exam: Reason for Consult: Diet education 01/19/21 07:37 Consult to Physician [CONS] Routine Comment: Consulting Provider: BLAYNE HOWELL Physician Instructions: Reason For Exam: Respiratrory failure, Covid-19, Pulm.Embolism 01/20/21 08:58 Physical Therapy Evaluation and Treat [CONS] Routine Comment: Reason For Exam: Debility Primary care physician: [facility] Hospitalization Condition: Fair Pertinent studies: CT head, chest x-ray, CTA chest Hospital course: This is a 65-year-old male was just discharged from the hospital earlier in the day after a prolonged hospital course presented back in the emergency room same day complaining of lightheadedness and dizziness. Was brought in by EMS and was found to be hypoxic with oxygen saturation of about 88 requiring nonrebreather. Work-up in the emergency room reveals bilateral lung disease on the chest x-ray which is unchanged. CT angiogram of the chest reveals segmental right lower lobe pulmonary emboli. There is bilateral lung disease worse in the right upper lobe consistent with pneumonia. Patient placed on supplemental O2, abx, therapeutic dose of Lovenox for AC for acute PE and admitted for further evaluation and Mx. Next day patient was weaned off to nasal cannula O2. Home health O2 was set up. Patient switched to Eliquis from Lovenox, which he tolerated well and h/h remained stable. Disposition: [id number] HOME UND[facility] Final Discharge Diagnosis (Prints w/discharge instructions): -- Acute pulmonary embolism. -- 2019 novel coronavirus infection. last positive test on 01/19/21. -- Acute respiratory failure with hypoxia. -- Hypertension. -- T2DM (type 2 diabetes mellitus). --Gout. --History of CVA with residual deficit. --Morbid obesity Time spent for discharge: 34 minutes Core Measure Documentation - Palliative Care Palliative Care/ Comfort Measures: Not Applicable - Core Measures Any of the following diagnoses?: history only Exam - Physical Exam Narrative exam: Limited physical exam due to COVID-19 pandemic to minimize transmission of the disease and to preserve PPE. Vital reviewed and stable. GENERAL: well-developed obese -Domin[place] male lying on bed appeared to be in no discomfort. HEENT: Normocephalic. Atraumatic. NECK: Supple. CHEST/LUNGS: breathing nonlabored. On nasal cannula HEART/CARDIOVASCULAR: Heart rate stable on telemetry ABDOMEN: Visibly not distended SKIN: There is no rash NEURO: No focal motor deficit. Follows command. MUSCULOSKELETAL: No joint effusion EXTRIMITY: No swelling, no cyanosis or clubbing. PSYCH: Cooperative. - Constitutional Vitals: Temp Pulse Resp BP Pulse Ox 98.4 F 102 H 20 141/75 98 01/20/21 04:31 01/20/21 04:31 01/20/21 04:31 01/20/21 04:31 01/20/21 05:01 Plan Activity: fall precautions Weight Bearing Status: Weight Bear as Tolerated Diet: diabetic Special Instructions: home oxygen via, home health RN Durable Medical Equipment Needed Upon Discharge: Oxygen (3L ) Follow up with: PRIMARY CARE, [Primary Care Provider] - 3-5 Days Prescriptions: Apixaban [Eliquis] 5 mg PO Q12HR #60 tablet
[2021-01-20 14:39] VITALS: BP 129/79
--- NOTE | 2021-01-21 12:51 | Electrocardiograph Report ---
[facility] Test Date: 2021-01-18 Test Time: 20:21:54 Pat Name: AISHA PERAZA Department: Room: A360 1 Gender: M [employer] Signalman: : 1955 Requested By: AISHA TO Order Number: [id number] Reading MD: Federico Teran Measurements Intervals [place] Rate: 80 P: 21 [place]: 156 QRS: 42 QRSD: 93 T: 75 QT: 367 QTc: 423 Interpretive Statements Sinus rhythm No previous ECG available for comparison Electronically Signed On 01-21-2021 12:51:05 EDT by Federico Teran
[2021-01-26] MEDS ORDERED: APIXABAN 5 MG TAB PO SCH (10:00)
== END 2021-01-20 14:55 | disposition home health service (06) ==
LOC: ED 18:09 → 3A 21:53
PROVIDERS: ADMIT Internal Medicine Geriatric Medicine; ATTEND Internal Medicine
DX: U07.1 COVID-19 (principal); J96.01 Acute respiratory failure with hypoxia; I26.99 Other pulmonary embolism without acute cor pulmonale; I10 Essential (primary) hypertension; E11.9 Type 2 diabetes mellitus without complications; B94.8 Sequelae of other specified infectious and parasitic diseases; E78.5 Hyperlipidemia, unspecified; R53.81 Other malaise; R55 Syncope and collapse; R91.8 Other nonspecific abnormal finding of lung field; R14.0 Abdominal distension (gaseous); M10.9 Gout, unspecified; E66.01 Morbid (severe) obesity due to excess calories; Z68.41 Body mass index [BMI] 40.0-44.9, adult; Z86.73 Personal history of transient ischemic attack (TIA), and cerebral infarction without residual deficits; Z79.82 Long term (current) use of aspirin; Z79.4 Long term (current) use of insulin; Z79.899 Other long term (current) drug therapy; Z98.890 Other specified postprocedural states
CPT/HCPCS: 36415; 70450; 71045; 71275; 80048; 80053; 81001; 82140; 82550; 82728; 82803; 82947; 82962; 83615; 83735; 84145; 84484; 85025; 85379; 85610; 85730; 86140; 87040; 93005; 96365; 96366; 96367; 96372; 96375; 97161; 97530; 99291; G0378; J0456; J0696; J1100; J1650; J1956; J7040; Q9967; U0003; J1815

== ENCOUNTER 2022-05-19 11:26 | Outpatient (CLI) | payer MEDICARE ==
[2022-05-19 12:40] LABS: Chol/HDL Ratio 3.2 %
== END 2022-05-19 11:27 | disposition home or self-care (01) ==
LOC: LABHHL 11:26
PROVIDERS: ATTEND Internal Medicine
DX: E11.65 Type 2 diabetes mellitus with hyperglycemia (principal); E78.5 Hyperlipidemia, unspecified
CPT/HCPCS: 36415; 80061; 83036